=== PATIENT | male | born 1950 | race Caucasian/White ===

== ENCOUNTER 2016-08-07 12:52 | Emergency (ER) | payer MEDICARE ==
--- NOTE | ~2016-08-07 | ER ---
ADMIT: 08/07/2016 RM/LOC: ER [facility] MR#: [id number] [address] [place], [place] [address] RENETTA ROLON [address] [place] [address] Emergency Room Report SEX: M AGE: 66 : 1950 DATE: 08/07/2016 TIME: 1252 hours. Please refer to my T-sheet for complete H and P. HISTORY OF PRESENT ILLNESS: Briefly, the patient is a 66-year-old who was sent over here for fever and cough and shortness of breath and right foot ulcer. The patient has known a high blood pressure, peripheral vascular disease, and lung cancer patient. They wanted him to be admitted, but they did not have beds in [place]. He has been staying with them currently. PHYSICAL EXAMINATION: VITAL SIGNS: Blood pressure 114/54, pulse 80, respiratory rate 16, temp 97.8, saturating 98%. GENERAL: He is in a little bit confused situation. HEENT: Grossly normal. LUNGS: Slightly coarse, coughing up phlegm. ABDOMEN: Soft. EXTREMITIES: He has a right foot ulcer, status post surgery with some erythema and cellulitis. NEUROLOGIC: Alert and oriented, nonfocal. EMERGENCY DEPARTMENT COURSE: CBC was normal except hemoglobin of 10.1. Chemistries normal except potassium 5.5, BUN 48. Coags normal. Lactate 1.1. Blood cultures x2 were sent. Influenza was negative. Chest x-ray revealed right upper lobe mass which he has had. This is a little bigger. EKG reveals sinus rhythm, no changes. Sepsis pathway was done. He was given a L of normal saline bolus. We started Vanco and Zosyn. [facility], they recommended we keep him here overnight. ASSESSMENT: 1. Right foot ulcer with cellulitis. 2. Bronchitis. 3. Fever. 4. Lung cancer. 5. Mild confusion, that is improved. PLAN: Admit to the hospital under the care of Dr. Parada as the [place] says they were full. Toño Byers MD/ wisam JOB #: [id number] CC: James Finch MD, Attending Physician [facility]-[place] Physician, Family Physician
--- NOTE | 2016-08-13 15:06 | ER ---
ADMIT: 08/07/2016 RM/LOC: ER [facility] MR#: [id number] [id number] [place], [place] [address] [address] ROLON [address] [place] [address] Emergency Room Report SEX: M AGE: 66 : 1950 DATE: 08/07/2016 TIME: 1252 hours. Please refer to my first dictation in my T-sheet. HISTORY OF PRESENT ILLNESS: Briefly, I was talking to the patient after [facility] the [facility] [place] They did not have beds. We are planning on admitting him to Dr. Parada. The patient was really adamant. He wanted to go back. He said he felt fine. I reviewed his labs. It had been stable here. He did get a dose of vancomycin and Zosyn here. He feels better. I think it is probably okay to have him follow up at the [place] here as he really wants to go home and his vital signs have been stable otherwise. ASSESSMENT: 1. Unchanged right foot ulcer with some cellulitis given vancomycin and Zosyn here. 2. Bronchitis. 3. Fever. 4. Lung cancer. PLAN: We are going to return to the [place]. We are going to continue antibiotics and they can see him tomorrow. Toño Byers MD/ wisam JOB #: [id number] CC: James Finch MD, Attending Physician [facility]-[place] Physician, Family Physician
== END 2016-08-07 17:45 | disposition home or self-care (01) ==
LOC: ER 12:52
DX: L97.519 Non-pressure chronic ulcer of other part of right foot with unspecified severity (principal); L03.115 Cellulitis of right lower limb; R41.0 Disorientation, unspecified; J40 Bronchitis, not specified as acute or chronic; C34.90 Malignant neoplasm of unspecified part of unspecified bronchus or lung; I10 Essential (primary) hypertension; E78.5 Hyperlipidemia, unspecified; F32.9 Major depressive disorder, single episode, unspecified; Z79.82 Long term (current) use of aspirin; Z79.899 Other long term (current) drug therapy

== ENCOUNTER 2016-08-08 10:15 | Day surgery (SDC) | payer MEDICARE ==
--- NOTE | ~2016-08-08 | OR ---
ADMIT: 08/08/2016 RM/LOC: [facility] MR#: [id number] [address] [facility] [address] [place], [place] [address] [address] ROLON [address] [place] [address] Operative/Delivery Room Report SEX: M AGE: 66 : 1950 SURGERY DATE: 08/08/2016 SURGEON: Ken Regalado MD PREPROCEDURE DIAGNOSIS: Food foreign body. POSTPROCEDURE DIAGNOSIS: Food foreign body. PROCEDURE: EGD (Esophagogastroduodenoscopy) with food foreign body removal. INDICATIONS: The patient is a 66-year-old male who for some reason swallows grapes whole, who is unable to tolerate his saliva, who presents for EGD foreign body removal. FINDINGS: The patient was taken to the endoscopy suite. He was intubated. The gastroscope was introduced down the oropharynx, where immediately in mid esophagus there was a large, nondisrupted purple grape. Tried to grasp this multiple times with a [place] net, I was unable to get completely around this large grape. Eventually I was able to beat this up and break it up into small pieces and push it into the stomach. There was noted to be evidence of esophagitis. There was no real obvious stricture. Things were a little irritated from the foreign body obstruction. After completely clearing the entire esophagus, I did not see any mass or ulcer, nothing that required biopsy. I did not do a dilatation due to the irritation and inflammation. The gastroscope was removed. The patient tolerated the procedure without difficulty and transferred to the recovery room in good condition. Ken Regalado MD/ wisam JOB #: [id number] CC: Robert Mauricio, Attending Physician Robert Mauricio, Family Physician
--- NOTE | 2016-08-11 12:33 | ER ---
ADMIT: 08/08/2016 RM/LOC: [facility] MR#: [id number] [address] [facility] [address] [place], [place] [address] [address] [place] [address] Emergency Room Report SEX: M AGE: 66 : 1950 DATE: 08/08/2016 ADDENDUM: A 66-year-old white male, demented, [place]. He evidently has swallowing problem. He got a grape stuck. We sent him over to the endoscopy suite where they removed that. It was irritated and reddened there. This will be followed up at the [place]. They sent him over here because of that, but they also want him up in [place] because he has this chronic right leg infection and there is a question of whether he is going to need an amputation of this. He was worked up yesterday with normal lab. Repeat here was also negative. A chest x-ray is negative. We did a lactate as well which was 1.6, which is negative. He is not septic. DIAGNOSIS: Foreign body in esophagus that was removed by Surgery, and then he has his chronic right leg infection and will be transferred by ambulance to the [place] in [place] per request of [place] and agreement with the [facility]drcd-ax-pord[facility], which is his son, whom I spoke to as well. CONDITION ON DISCHARGE AND TRANSFER: Stable. James Finch MD/ wisam JOB #: [id number] CC: Robert Mauricio MD, Attending Physician Robert Mauricio MD, Family Physician
--- NOTE | 2016-09-04 08:53 | HP ---
ADMIT: 08/08/2016 RM/LOC: [facility] MR#: [id number] [address] [facility] [address] [place], [place] [address] CHILO ROLON [address] [place] [address] Pre-OP History and Physical SEX: M AGE: 66 : 1950 Correction: 08/21/2016 1151 djs DATE OF SERVICE: 08/08/2016 CHIEF COMPLAINT: Abdominal pain, food bolus. HISTORY OF PRESENT ILLNESS: Chilo is a very pleasant 66-year-old male, who apparently was eating grapes whole either frozen or not and gotten lodged down to esophagus. The patient is a poor historian, so I got the majority of the history from his chart and his POA. Currently in the emergency room, he is nauseous and has experienced some projectile vomiting. He has an inability to swallow even water. Of note, he was seen in the emergency room yesterday for osteomyelitis of his right foot, fevers, and bronchitis. [facility] is a [facility]. He currently denies any diarrhea or constipation. PAST MEDICAL HISTORY: Significant for vascular dementia, hyperlipidemia, hypertension, GERD, generalized osteoarthritis, PVD, COPD, and lung cancer. ALLERGIES: NO KNOWN DRUG ALLERGIES. MEDICATIONS: Well documented in chart. FAMILY HISTORY: Noncontributory. SOCIAL HISTORY: The patient has a positive alcohol and tobacco use. REVIEW OF SYSTEMS: CONSTITUTIONAL: The patient denies any fever, chills, or night sweats. The rest of comprehensive 10-point review of systems was performed and all other systems are negative. PHYSICAL EXAMINATION: GENERAL: The patient is in no acute distress. He is alert and oriented. HEENT: Head is normocephalic and atraumatic. EOMS are intact. Conjunctivae free of icterus, erythema, pallor. Pinnae, free of deformities. Nose, midline. No tracheal deviation. NECK: Supple. SKIN: Negative for jaundice, clubbing, edema, pallor, or cyanosis. LUNGS: Normal respiratory effort. HEART: Distal pulses intact. ADMIT: 08/08/2016 RM/LOC: [facility] MR#: [id number] [address] [facility] [address] [facility] [place], [place] [address] [address] R[address]ON [address], [place] [address] Pre-OP History and Physical SEX: M AGE: 66 : 1950 ABDOMEN: Soft, nondistended. Generalized tenderness. NEURO: Cranial nerves II through XII grossly intact. ASSESSMENT: Food bolus. PLAN: The plan is to have the patient undergo EGD with foreign body removal, shortly performed by Dr. Regalado. I discussed the risks, alternatives, benefits, and complications of the procedure with his POA to which she is in agreement of this plan, had all questions answered and would like to proceed. After this procedure, the patient will transfer out to the [place]. SOCRATES Pruitt / Ken Regalado MD / wisam JOB #: [id number] CC: Robert Mauricio, Attending Physician Robert Mauricio, Family Physician Correction: 08/21/2016 1151 djs
--- NOTE | 2016-09-04 08:53 | HP ---
ADMIT: 08/08/2016 RM/LOC: [facility] MR#: [id number] [address] [address] [address] ROLON [address], [place] [address] Pre-OP History and Physical SEX: M AGE: 66 : 1950 DATE OF SERVICE: 08/08/2016 ADDENDUM: This is an addition to James Wild's note. hCilo is a 66-year-old [facility] patient, apparently with some dementia, who eats grapes whole, is now unable to swallow or tolerate his own saliva. PAST MEDICAL HISTORY: Includes hypertension, hypercholesterolemia, depression and reflux disease. MEDICATIONS: 1. Aspirin. 2. Clopidogrel. 3. Finasteride. 4. Lasix. 5. Lisinopril. 6. Gabapentin. 7. Metoprolol. 8. Mirtazapine. 9. Multivitamin. 10.Pantoprazole. 11.Risperidone. 12.Rosuvastatin. 13.Sertraline. 14.Sucralfate. 15.Albuterol. 16.Budesonide. 17.Tramadol. ALLERGIES: NO ALLERGIES. ADMIT: 08/08/2016 RM/LOC: [facility] MR#: [id number] [address] [facility] [address] [place] [address] [address], [place] [id number] Pre-OP History and Physical SEX: M AGE: 66 : 1950 REVIEW OF SYSTEMS: Hard to obtain as he is a difficult historian. PHYSICAL EXAMINATION: VITAL SIGNS: He is afebrile. Vitals stable. HEART: Regular. LUNGS: Clear. ABDOMEN: Soft, nondistended, and nontender. EXTREMITIES: No peripheral edema. NEUROLOGIC: No focal neurologic deficits. ASSESSMENT AND PLAN: The patient is a 66-year-old with food and foreign body, who presents for EGD for food and foreign body removal. Risks and benefits were discussed. Ken Regalado MD/ wisam JOB #: [id number] CC: Robert Mauricio, Attending Physician Robert Mauricio, Family Physician
== END 2016-08-08 14:02 | disposition home or self-care (01) ==
LOC: ER 10:15 → SSS 13:00
PROC: 0DC28ZZ Extirpation of Matter from Middle Esophagus, Via Natural or Artificial Opening Endoscopic (ICD-10-PCS; principal; 2016-08-08)
DX: T18.128A Food in esophagus causing other injury, initial encounter (principal); F03.90 Unspecified dementia, unspecified severity, without behavioral disturbance, psychotic disturbance, mood disturbance, and anxiety; I10 Essential (primary) hypertension; E78.5 Hyperlipidemia, unspecified; K21.9 Gastro-esophageal reflux disease without esophagitis; J44.9 Chronic obstructive pulmonary disease, unspecified; I73.9 Peripheral vascular disease, unspecified; M15.9 Polyosteoarthritis, unspecified; F17.200 Nicotine dependence, unspecified, uncomplicated; Z85.118 Personal history of other malignant neoplasm of bronchus and lung; Z98.890 Other specified postprocedural states

== ENCOUNTER 2016-11-08 18:29 | Emergency (ER) | payer MEDICARE ==
--- NOTE | 2016-11-14 19:59 | ER ---
ADMIT: 11/08/2016 RM/LOC: ER [facility] MR#: [id number] [address] [address] [address] ROL[address] [facility] [place] [address] Emergency Room Report SEX: M AGE: 66 : 1950 DATE: 11/08/2016 CHIEF COMPLAINT: Confusion. HISTORY OF PRESENT ILLNESS: The [place] [facility] with the intermediate report that he is increasingly confused, disoriented. He does have chronic dementia. States he is even less appropriate. He is running a fever. He was seen yesterday in clinic, had laboratory studies drawn. Recommended followup here in the ER for further evaluation and management. The patient does have a chronic gangrenous right foot. He has had his 1st and 2nd toes amputated. Chronic nonhealing wound with a necrotic base. Been hospitalized multiple times for IV antibiotics. The patient does not answer questions. He does follow commands. PAST MEDICAL HISTORY: Coronary artery disease, CHF, hypertension, COPD, hyperlipidemia, osteoarthritis, severe, peripheral vascular disease, alcohol use disorder, chronic cerebrovascular accident, vascular dementia, and GERD. COURSE IN THE EMERGENCY ROOM: GENERAL: The patient was seen and examined. VITAL SIGNS: Initial temperature 100.9, blood pressure 155/79, heart rate 102, respirations 12. NEUROLOGIC: He is alert; however, he does not follow commands. Initially, he does not answer questions. History and exam overall very limited. He does move all 4 extremities. He is noncommunicative. HEENT: Pupils are equal. Extraocular muscles intact. Breath sounds are equal bilaterally with faint wheezes in the bases. HEART: Tachycardic. No murmurs, gallops, rubs. SKIN: Warm and dry. EXTREMITIES: Right lower extremity 1st and 2nd toes status post amputation. There is a necrotic wound with thick white exudates. There is no erythema surrounding the wound. Given his presentation, multiple hospitalizations for infection in the past, did proceed with sepsis protocol at this time. Shows white count 10.3, hemoglobin 8.3, hematocrit 26.7, platelets 596. Sodium 138, potassium 4.1, BUN 17, glucose 111, creatinine 1.0, lactate 1.1. EKG unremarkable. UA was deferred. I did recheck his temperature, 99.6. He was given IV fluids TKO. He did become more alert and appropriate. He would answer questions. Nursing staff state he appears to be back to his baseline from his multiple ER visits in the past. Overall, his laboratory studies are very unremarkable for any signs of infection. Fever has resolved. Ready for discharge back to [facility] for continued care. ADMIT: 11/08/2016 RM/LOC: ER [facility] MR#: [id number] [address] [address] [place] [address] Emergency Room Report SEX: M AGE: 66 : 1950 IMPRESSION: 1. Chronic gangrenous right foot. 2. Confusion, resolved. 3. Fever, resolved. 4. Chronic dementia. DISPOSITION: The patient was discharged back to intermediate. Resume course in therapies as previously ordered. Follow up with primary care provider this week. Return with any worsening signs or symptoms. Questions sought and answered to the best of my ability and to the patient's satisfaction. Discharged home in stable condition. SOCRATES Hernandez / Miguel Sahni MD / lilyl JOB #: [id number] CC: Toño Byers MD, Attending Physician [facility]-[place] Physician, Family Physician
== END 2016-11-08 21:00 ==
LOC: ER 18:29
DX: R41.0 Disorientation, unspecified (principal); R50.9 Fever, unspecified; F03.90 Unspecified dementia, unspecified severity, without behavioral disturbance, psychotic disturbance, mood disturbance, and anxiety; I96 Gangrene, not elsewhere classified; I11.0 Hypertensive heart disease with heart failure; I50.9 Heart failure, unspecified; I25.10 Atherosclerotic heart disease of native coronary artery without angina pectoris; E78.5 Hyperlipidemia, unspecified; M19.90 Unspecified osteoarthritis, unspecified site; K21.9 Gastro-esophageal reflux disease without esophagitis; Z86.73 Personal history of transient ischemic attack (TIA), and cerebral infarction without residual deficits; Z89.411 Acquired absence of right great toe; Z89.421 Acquired absence of other right toe(s); Z88.2 Allergy status to sulfonamides

== ENCOUNTER 2016-11-13 00:27 | Emergency (ER) | payer MEDICARE ==
--- NOTE | 2016-11-13 06:44 | ER ---
ADMIT: 11/13/2016 RM/LOC: ER [facility] MR#: [id number] [address] [facility] [address] [place] [address] Emergency Room Report SEX: M AGE: 66 : 1950 DATE: 11/13/2016 The patient is a 66-year-old male, resident of skilled care in [facility] transferred tonight due to increasing delirium and fever. The patient has longstanding history of necrotic right foot due to diabetic foot ulcer status post partial ray amputation, has refused foot amputation to-date. Exam remarkable for toxic appearing, delirious, demented male, with normal blood pressure and obvious dry gangrene, right forefoot. No malodorous discharge noted. X-ray right foot shows no changes of osteomyelitis or gas. Chest x- ray unremarkable except for right upper lobe mass consistent with known non- small cell lung carcinoma. The patient received IV fluids, Zosyn, and vancomycin. Maintain blood pressures in the 140s to 150 systolic. Lactic acid 0.9. WBC 12.8, hemoglobin 7.6, stable with known anemia of chronic disease. Discussed case with Dr. Karina Lazo, [place] EDP, who agreed to accept. 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 Josh Alejandro MD/ wisam JOB #: [id number] CC: Josh Alejandro MD, Attending Physician [facility]-[place] Physician, Family Physician
== END 2016-11-13 07:57 ==
LOC: ER 00:27
DX: E11.52 Type 2 diabetes mellitus with diabetic peripheral angiopathy with gangrene (principal); I11.0 Hypertensive heart disease with heart failure; I50.9 Heart failure, unspecified; Z88.8 Allergy status to other drugs, medicaments and biological substances